=== PATIENT | female | born 1995 | race Caucasian/White ===

== ENCOUNTER → 2018-12-01 | Outpatient (CLI) | payer OTHER ==
[2018-12-01 08:54] LABS: Basophils # (auto) 0 uL; Basophils % (auto) 0.3 % (0.0-2.0); Eosinophils # (auto) 0.1 uL; Eosinophils % (auto) 0.9 % (0.0-7.0); Hematocrit 37.1 % (36.0-46.0); Hemoglobin 13.1 g/dL (12.2-16.2); Lymphocytes # (auto) 1.7 uL; Lymphocytes % (auto) 14.2 % (10.0-50.0); Mean Corpuscular Hemoglobin 31.9 pg (28.0-32.0); Mean Corpuscular Hgb Conc. 35.3 g/dL (32.0-36.0); Mean Corpuscular Volume 90.4 fL (80.0-100.0); Monocytes # (auto) 0.6 uL; Monocytes % (auto) 5.5 % (0.0-12.0); Neutrophils # (auto) 9.2 uL; Neutrophils % (auto) 79.1 % (37.0-80.0); Platelet Count (auto) 209 10^3/uL (140-450); White Blood Cell 11.6 10^3/uL (4.4-10.8)
[2018-12-01 09:36] LABS: Calcium 8.7 mg/dL (8.5-10.1); Potassium 3.8 mmol/L (3.5-5.1)
[2018-12-01 09:41] LABS: BUN/Creatinine Ratio 11.6; Bilirubin, Total 0.2 mg/dL (0.2-1.0); Total Protein 6.6 g/dL (6.4-8.2)
== END | disposition home or self-care (01) ==
LOC: LAB 08:10
PROVIDERS: ATTEND Obstetrics & Gynecology
DX: O99.810 Abnormal glucose complicating pregnancy (principal); Z3A.28 28 weeks gestation of pregnancy
CPT/HCPCS: 36415; 80053; 82951; 85025

== ENCOUNTER → 2019-01-26 | Outpatient (CLI) | payer OTHER ==
[2019-01-26 12:25] LABS: Basophils # (auto) 0 uL; Basophils % (auto) 0.3 % (0.0-2.0); Eosinophils # (auto) 0.2 uL; Eosinophils % (auto) 1.7 % (0.0-7.0); Hematocrit 42.3 % (36.0-46.0); Hemoglobin 14.5 g/dL (12.2-16.2); Lymphocytes # (auto) 1.3 uL; Lymphocytes % (auto) 13.4 % (10.0-50.0); Mean Corpuscular Hemoglobin 31.6 pg (28.0-32.0); Mean Corpuscular Hgb Conc. 34.2 g/dL (32.0-36.0); Mean Corpuscular Volume 92.4 fL (80.0-100.0); Monocytes # (auto) 0.8 uL; Monocytes % (auto) 8.3 % (0.0-12.0); Neutrophils # (auto) 7.2 uL; Neutrophils % (auto) 76.3 % (37.0-80.0); Nucleated Red Blood Cells % 0.1 %; Platelet Count (auto) 173 10^3/uL (140-450); Red Blood Cells 4.58 10^6/uL (4.0-5.20); Red Cell Distribution Width 13.5 % (11.8-14.3); White Blood Cell 9.5 10^3/uL (4.4-10.8)
[2019-01-27 05:06] LABS: RPR Non Reactive (Non Reactive)
== END | disposition home or self-care (01) ==
LOC: LAB 11:41
PROVIDERS: ATTEND Obstetrics & Gynecology
DX: Z34.93 Encounter for supervision of normal pregnancy, unspecified, third trimester (principal); Z3A.36 36 weeks gestation of pregnancy
CPT/HCPCS: 36415; 84112; 85025; 86592; 87081

== ENCOUNTER 2019-02-17 16:57 | Observation (INO) | payer OTHER ==
[~2019-02-17] VITALS: Ht 162.6 cm; Wt 92.5 kg
--- NOTE | 2019-02-17 20:25 | NUR ---
Discharge instructions initiated
--- NOTE | 2019-02-17 20:45 | NUR ---
In depth discharge instructions completed. All questions answered.
[2019-02-21] MEDS ORDERED: PREN-96 PO (22:55)
== END 2019-02-17 20:47 | disposition home or self-care (01) | DRG 833 ==
LOC: LDRP 16:57
PROVIDERS: ADMIT Obstetrics & Gynecology; ATTEND Obstetrics & Gynecology
DX: O62.9 Abnormality of forces of labor, unspecified (principal); O42.92 Full-term premature rupture of membranes, unspecified as to length of time between rupture and onset of labor; Z3A.39 39 weeks gestation of pregnancy
CPT/HCPCS: 59025; 76818; 81002; 84112; G0378